=== PATIENT | female | born 1990 | race Caucasian/White ===

== ENCOUNTER 2023-06-24 10:38 | Outpatient (CLI) | payer BC | END 2023-06-24 10:39 | disposition home or self-care (01) | LOC: BICRAD 10:38 | PROVIDERS: ATTEND Family Medicine | DX: S29.011A Strain of muscle and tendon of front wall of thorax, initial encounter (principal) ==

== ENCOUNTER 2023-12-17 01:52 | Emergency (ER) | payer BC ==
[2023-12-17] MEDS ORDERED: Ondansetron ODT 4 MG TAB ONE (02:31)
[2023-12-17 03:05] LABS: #Basophils Less than 0.03 10x3/uL (0.0-0.2); %Basophils 0.2 % (0.0-1.0); %Eosinophils 0.7 % (0.0-10.0); %Lymphocytes 16.7 % (21.0-51.0); %Monocytes 5.1 % (0.0-10.0); Hematocrit 38.3 % (36.0-47.0); Hemoglobin 13.2 g/dL (12.0-16.0); Mean Corpuscular HGB CONC 34.5 g/dL (32.0-36.0); Mean Corpuscular Hemoglobin 32.6 pg (27.0-31.0); Mean Corpuscular Volume 94.6 fL (78.0-98.0); Mean Platelet Volume 9.7 fL (7.4-10.4); Platelet Count 210 10x3/uL (130-400); RBC Distribution Width 11.7 % (11.5-14.5); Red Blood Cell (RBC) Count 4.05 mill/uL (4.20-5.40)
[2023-12-17 03:21] LABS: ALT (SGPT) 13 U/L (8-55); AST (SGOT) 16 U/L (5-34); Albumin 3.7 g/dL (3.5-5.0); Alkaline Phosphatase 47 U/L (40-110); Anion Gap 10 mmol/L (10-20); BUN (Urea Nitrogen) 9 mg/dL (7.0-18.7); Bilirubin, Total 0.4 mg/dL (0.2-1.2); Calc. Creatinine Clearance 0 mL/min (70-130); Calcium 9.8 mg/dL (7.8-10.44); Carbon Dioxide 26 mmol/L (22-29); Chloride 102 mmol/L (98-107); Estimated GFR 84; Globulin 3.1 g/dL (2.4-3.5); Glucose 92 mg/dL (70-105); Potassium 3.5 mmol/L (3.5-5.1); Protein, Total 6.8 g/dL (6.0-8.3); Sodium 134 mmol/L (136-145)
[2023-12-17 03:30] LABS: BHCG - Serum Negative (NEGATIVE); Pregs Control Background? CLEAR/WHITE (CLR/WHITE); Pregs Control Bar Appear? YES (CONTROL BAR)
[2023-12-17 03:39] LABS: Bacteria/HPF 4+ HPF (None Seen); Bilirubin Negative (Negative); Blood, Urine Trace (Negative); CAUTI Indications for Culture Dysuria,urgency,freq; Clarity Clear (Clear); Glucose, Urine (Dipstick) Normal (Negative); Ketone, Urine Negative (Negative); Leukocyte 75 Leu/uL (Negative); Nitrite Negative (Negative); Protein, Urine (Dipstick) Negative (Neg-Trace); RBC/HPF 0-3 HPF (0-3); Squamous Epithelial 0-3 HPF (0-3); Urobilinogen Normal mg/dL (Less than 2); WBC/HPF 0-3 HPF (0-3)
[2023-12-17 03:40] LABS: Urine Culture Reflex No No
== END 2023-12-17 04:00 | disposition home or self-care (01) ==
LOC: ERS 01:52
DX: N10 Acute pyelonephritis (principal)
CPT/HCPCS: 36415; 80053; 81001; 84703; 85025; 99284; Q0162